=== PATIENT | male | born 1965 | race Two or more races ===

== ENCOUNTER → 2024-11-12 | Outpatient (CLI) | payer OTHER, SELFPAY ==
[2024-11-12 08:39] LABS: Glucose Estimated Average 186 mg/dL (80-131); Hemoglobin A1C 8.1 % Hgb (4.8-6.0)
[2024-11-12 08:42] LABS: Basophils # (Auto) 0.1 Thou/mm3 (0.0-0.2); Basophils % (Auto) 1 % (0-2.5); Eosinophils # (Auto) 0.2 Thou/mm3 (0.0-0.5); Eosinophils % (Auto) 3 % (0-10); Hematocrit 45.3 % (41.0-53.0); Hemoglobin 16.2 g/dL (13.5-16.0); Immature Granulocytes % (Auto) 0 % (0-0); Immature Granulocytes Auto 0.02 Thou/mm3 (0.00-0.00); Lymphocytes % (Auto) 33 % (10-50); Mean Corpuscular HGB Conc 35.8 g/dl (31.0-37.0); Mean Corpuscular Hemoglobin 31.7 pg (25.0-35.0); Mean Corpuscular Volume 89 fL (80-100); Monocytes # (Auto) 0.4 Thou/mm3 (0.0-0.8); Monocytes % (Auto) 7 % (0-12); Neutrophils # (Auto) 3.4 Thou/mm3 (1.8-7.7); Neutrophils % (Auto) 56 % (37-80); Nucleated Red Blood Cell % 0 /100 WBC (0); Platelet Count 266 Thou/mm3 (140-440); RDW Standard Deviation 40.9 fL (35.1-43.9); Red Blood Count 5.11 Miln/mm3 (4.50-5.90); White Blood Count 6.1 Thou/mm3 (3.8-10.6)
[2024-11-12 08:57] LABS: Alanine Aminotransferase 65 U/L (10-49); Albumin, Serum 4.8 gm/dL (3.5-5.0); Alkaline Phosphatase 118 U/L (46-116); Anion Gap 9 (7-16); Aspartate Amino Transferase 45 U/L (0-34); BUN/Creatinine Ratio 23 Ratio (12-20); Bilirubin,Direct 0.1 mg/dL (0.0-0.3); Bilirubin,Total 0.5 mg/dL (0.3-1.2); Blood Urea Nitrogen 23 mg/dL (9-23); Calcium 9.9 mg/dL (8.3-10.6); Carbon Dioxide 25.8 mMol/L (20.0-31.0); Cardiac Risk Estimate 3.3 RATIO (4.0-6.7); Chloride 107 mMol/L (98-107); Cholesterol 174 mg/dL (132-200); Glucose 121 mg/dL (74-106); HDL Cholesterol 52 mg/dL (40-60); LDL Cholesterol,Calculated 45 mg/dL (0-130); Osmolality,Calculated 287 (275-295); Potassium 4.4 mMol/L (3.4-5.1); Sodium 142 mMol/L (136-145); Triglycerides 385 mg/dL (30-150); eGFR > 60 See Note
[2024-11-12 09:59] LABS: Creatinine MALB Rnd Ur 73 mg/dL (30-125); Microalbumin Creat Ratio 11 mg/gCrea (<30); Microalbumin, Random Urine 8 mg/L (0-300)
== END | disposition home or self-care (01) ==
LOC: COPL 07:37
PROVIDERS: PCP Family Medicine; Referring Provider Family Medicine; Visit Provider Family Medicine
DX: E11.9 Type 2 diabetes mellitus without complications (principal); E78.5 Hyperlipidemia, unspecified; M25.561 Pain in right knee
CPT/HCPCS: 36415; 80048; 80061; 80076; 82043; 82570; 83036; 85025

== ENCOUNTER → 2024-11-14 | Outpatient (CLI) | payer OTHER, MEDICAID, SELFPAY ==
[2024-11-17 07:05] LABS: Fecal Globin Result NOT DETECTED (NOT DETECTED)
== END | disposition home or self-care (01) ==
LOC: SLDO 09:12
PROVIDERS: Referring Provider Family Medicine; Visit Provider Family Medicine
DX: Z12.11 Encounter for screening for malignant neoplasm of colon (principal); Z12.12 Encounter for screening for malignant neoplasm of rectum
CPT/HCPCS: 82274; G0328

== ENCOUNTER → 2024-12-08 | Outpatient (CLI) | payer OTHER, MEDICAID, SELFPAY ==
--- NOTE | 2024-12-08 10:04 | XR_ITS ---
Examination: Knee, right , 3 views Technique: Knee AP, lateral, oblique 3 views Date and time of exam: December 08, 2024 1016 hours INDICATIONS: Right knee pain beginning 2 days ago FINDINGS: Mild tricompartment osteoarthritis Moderate knee effusion No fracture IMPRESSION: Mild tricompartment osteoarthritis Moderate knee effusion, seen with internal derangement of the knee
== END | disposition home or self-care (01) ==
LOC: SDIM 09:54
PROVIDERS: PCP Family Medicine; Referring Provider Family Medicine; Visit Provider Family Medicine
DX: M17.11 Unilateral primary osteoarthritis, right knee (principal); M25.461 Effusion, right knee; M23.91 Unspecified internal derangement of right knee
CPT/HCPCS: 73562

== ENCOUNTER → 2024-12-30 | Outpatient (CLI) | payer OTHER, MEDICAID, SELFPAY ==
--- NOTE | 2024-12-30 14:45 | XR_ITS ---
Exam: MRI knee without contrast, right Date and time of exam: December 30, 2024 1548 hours INDICATIONS: Right knee pain beginning one month ago Technique: Multiple axial, coronal, and sagittal sections on the knee have been obtained. T2-Weighted sagittal, fat-suppressed images, TR 3,500, TE 62, T2 weighted coronal fat-saturated images, TR 3,500, TE 62 Proton density sagittal sections, TR 1800, TE 31. T-1 weighted coronal images, TR 524, TE 13.0 Findings: Medial meniscus anterior horn truncation inner margin Medial meniscus, body horizontal linear tear communicating inferior articular surface. Posterior horn medial meniscus truncation inner margin Lateral meniscus anterior horn is intact Lateral meniscus, body is intact Posterior horn lateral meniscus is intact Anterior cruciate ligament significantly attenuated Posterior cruciate ligament appears intact. Knee effusion is moderate. Quadriceps and patellar tendons appear intact. There is no evidence of tendinosis. There is fracture through the Hoffa's fat pad Medial patellar facet demonstrates moderate thinning. Lateral patellar facet cartilage demonstrates moderate thinning. Trochlear cartilage demonstrates moderate thinning. Marrow signal adequate. Medial collateral ligament appears intact. No meniscocapsular separation is seen. Illiotibial band and fibular collateral ligament are intact. Biceps femoris tendons appear intact. Medial femoral condylar articular cartilage demonstrates mild thinning. Lateral femoral condylar articular cartilage demonstratesmild thinning. Tibial plateau cartilage demonstrates mild thinning. Impression: Fragmentation of Hoffa's fat pad Extensive tears medial meniscus Prominent attenuation anterior cruciate ligament
== END | disposition home or self-care (01) ==
PROVIDERS: PCP Family Medicine; Referring Provider Family Medicine; Visit Provider Family Medicine
DX: S83.241A Other tear of medial meniscus, current injury, right knee, initial encounter (principal); X58.XXXA Exposure to other specified factors, initial encounter; M25.861 Other specified joint disorders, right knee
CPT/HCPCS: 73721

== ENCOUNTER 2025-01-27 08:52 | Outpatient (AMB) | payer OTHER, MEDICAID, SELFPAY ==
[2025-01-27 09:17] VITALS: BP 131/88; PULSE 101; RESP 17; TEMP 36.8; O2SAT 95; BMI 23.4
--- NOTE | 2025-01-27 09:17 | PD.ORTHCLVIS ---
Vital signs 01/27/25 09:17 Height 1.78 m Height Method Stated Weight 74.134 kg Weight Measurement Method Standing Scale BMI 23.4 BP 131/88 H Blood Pressure Source Automatic Cuff Blood Pressure Location Right Upper Arm Position Sitting Respiration 17 Pulse 101 H Pulse Source Monitor Temp 98.3 F Temp Source Temporal Artery Scan Pulse Oximetry (%) 95 Oxygen Delivery Method Room Air Med/Allergies Allergies & Medications Allergies No Known Allergies Allergy (Verified 01/27/25 09:18) Medication Reconciliation amitriptyline 25 mg tablet 25 mg PO QDAY 01/27/25 [History Confirmed 01/27/25] baclofen 10 mg tablet 10 mg PO QDAY 01/27/25 [History Confirmed 01/27/25] donepezil 10 mg tablet 10 mg PO QDAY 01/27/25 [History Confirmed 01/27/25] glimepiride 4 mg tablet 4 mg PO QAM 01/27/25 [History Confirmed 01/27/25] insulin glargine U-300 conc 300 unit/mL (1.5 mL) subcutaneous pen (Toujeo SoloStar U-300 Insulin) 30 unit subcut QDAY 01/27/25 [History Confirmed 01/27/25] latanoprost 0.005 % eye drops 1 drp Both eyes QPM 01/27/25 [History Confirmed 01/27/25] meloxicam 7.5 mg tablet 7.5 mg PO QDAY #45 tabs 01/27/25 [Rx Confirmed 01/27/25] memantine 10 mg tablet 10 mg PO BID 01/27/25 [History Confirmed 01/27/25] metformin 1,000 mg tablet 1,000 mg PO BID 01/27/25 [History Confirmed 01/27/25] pioglitazone 15 mg tablet 15 mg PO QDAY 01/27/25 [History Confirmed 01/27/25] rosuvastatin 20 mg tablet 20 mg PO QDAY 01/27/25 [History Confirmed 01/27/25] Exam Exam Patient is in no acute distress and is cooperative with the examination today. Breathing is nonlabored. In no respiratory distress. Bilateral extremities were evaluated and demonstrates sensation intact to light touch. Palpable pedal pulses are present. No significant edema is present. Bilateral hips were examined. The patient has no pain with log roll of the hips. Internal rotation to 30 degrees and external rotation to 30 degrees is painless. Negative FADIR. The left knee was examined. The left knee is in varus alignment. Range of motion from 0-115 degrees. Knee is stable to varus and valgus as well as AP translation with <5mm. Patient has a negative McMurrays. There is no pain with patellofemoral compression and no crepitus noted. The knee is tender to palpation medially. The right knee was also examined. The right knee is in varus alignment. Range of motion from 0-120 degrees. Knee is stable to varus and valgus as well as AP translation with <5mm. Patient has a negative McMurrays. There is no pain with patellofemoral compression and no crepitus noted. The knee is tender to palpation medially. Right knee x-rays demonstrate minimal joint space narrowing. These are nonweightbearing x-rays Assessment and Plan Problem List (1) Arthritis of knee, right: Status: Acute Plan: Patient is a 60-year-old male with right knee pain and right knee arthritis. The knee pain has been ongoing for 4 weeks. He has not tried significant conservative therapy. We will start with conservative treatment. I would like to get a weightbearing x-ray. We will do anti-inflammatories as well as an injection. Recommend knee cortisone injection as patient would like to proceed with conservative treatment at this time. The risks and benefits of the procedure were reviewed with the patient and patient gave verbal consent to continue with the procedure. Procedure: performed by Dr. Sagluero Using sterile technique the Right knee was thoroughly prepped with alcohol, and approximately 1 cc of Kenalog 40 mg/mL and 4 cc of 1% lidocaine was injected without resistance into the medial tibial femoral joint space. The patient tolerated the procedure. Office Procedures GNS Level of Care Nursing/Assessment Patient Status: Initial/New Patient Nursing Assessment/Reassesment: Medication Reconciliation and Update PMH in EMR Coordination of Care: Complex Care and Chronic Disease 1-5, Consent,records obtained, informed consent, 1 Ins Authorization, Lab and Imaging orders and Results/Orders obtained New Patient Charge New Patient Point Assignment: [id number] New Patient Point Charge: GREY INSPECTOR Level 3 ([id number]) Surgical Proc/IM SQ injection Major Surgical Procedure: Yes (KNEE INJECTIONS ) Medication Given Medication Given Medication Given: Yes Documented Dose Given: 4 Route: Infiitration Medication Given Medication Given Medication Given: Yes Documented Dose Given: 1 Route: Infiitration Office Meds Xylocaine 10 mg/mL (1 %) injection solution Performing Provider: Sarmad Salguero MD Performing Location: [facility] Administered by: Sarmad Salguero MD on 01/27/25 10:07 Dose Route Admin Location Dispensed Lot Number Expiration Date [employer] Programming Development Project Manager 20 mL Infiltration KNEE 20 mL [id number] 05/11/28 02583-722-56 [facility] triamcinolone acetonide 40 mg/mL suspension for injection Performing Provider: Sarmad Salguero MD Performing Location: [facility] Administered by: Sarmad Salguero MD on 01/27/25 10:07 Dose Route Admin Location Dispensed Lot Number Expiration Date [facility] Programming Development Project Manager 40 mg intra-articular KNEE 1 mL [id number] 08/10/26 7302-7738-29 [employer] [place] Intake Visit Data Collection New Patient or Established: New Patient (never been to [facility]) Reason for Visit:: RT KNEE PAIN Seen by Clinical Staff ONLY (RN/MA): No Online Program Coordinator Required: No PCP or OBGYN visit in last 3 months: Yes Hx Now: No Do You Feel Safe at Home: Yes Authorities Contacted: N/A Questionairres Past Medical History Past Medical History Have you ever been diagnosed with any of the following: Respiratory Problems Smoking: No Smoking Cessation Counseling: No Smoking Exposure: No Tobacco Use: No Subjective Visit Visit for: new patient and knee (RT KNEE PAIN ) Immunization / Flu Flu Vaccine in the Last 12 Months: Yes Flu Vaccine Exclusion Criteria: Already Received History of Present Illness Chief complaint: Right knee pain Frantz is a pleasant 60-year-old male with right knee pain. This has been onGoing for 2 months. He has not had significant conservative treatment. 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 He reports his diabetes is well-controlled Personal History Red flag PMH: none Pain Pain level (0-10): 7 Pain duration: 12/2024 Pain location: anterior Pain quality: sharp, dull, aching, burning, shocking, electric and tingling Pain timing: night and increases with activity Associated signs & symptoms: weakness Ambulatory data Ambulatory device: none Walking distance (minutes): 1 Treatments Number of previous injections: 1 Improvement with previous injections: Yes Number of Physical Therapy sessions: 0 Improvement with NSAIDS: n/a Review of Systems Review of Systems: All systems negative unless otherwise noted in HPI.
--- NOTE | 2025-01-27 09:19 | XR_ITS ---
Examination: Right knee 4 views TECHNIQUE: Standing AP oblique lateral axial right knee 4 views Date and time: January 27, 2025 0951 hours INDICATIONS: Injury beginning 2 months ago, knee pain. FINDINGS: Mild to moderate tricompartment osteoarthritis, most prominent medial joint space No fracture or patellar dislocation IMPRESSION: Mild to moderate tricompartment osteoarthritis
== END 2025-01-27 09:45 | disposition home or self-care (01) ==
PROVIDERS: Supervising Provider Orthopaedic Surgery Adult Reconstructive Orthopaedic Surgery; Visit Provider Orthopaedic Surgery Adult Reconstructive Orthopaedic Surgery
DX: M17.11 Unilateral primary osteoarthritis, right knee (principal); M25.561 Pain in right knee; E11.9 Type 2 diabetes mellitus without complications; Z86.73 Personal history of transient ischemic attack (TIA), and cerebral infarction without residual deficits
CPT/HCPCS: 20610; 73564; 99203; J3301; J3490; G0463

== ENCOUNTER → 2025-02-19 | Outpatient (CLI) | payer OTHER, MEDICAID, SELFPAY ==
[2025-02-19 08:52] LABS: Glucose Estimated Average 183 mg/dL (80-131)
[2025-02-19 09:13] LABS: Anion Gap 15 (7-16); BUN/Creatinine Ratio 13 Ratio (12-20); Blood Urea Nitrogen 14 mg/dL (9-23); Calcium 9.3 mg/dL (8.3-10.6); Carbon Dioxide 24.5 mMol/L (20.0-31.0); Chloride 102 mMol/L (98-107); Creatinine (Component) 1.1 mg/dL (0.6-1.3); Glucose 287 mg/dL (74-106); Osmolality,Calculated 291 (275-295); Potassium 4.1 mMol/L (3.4-5.1); Sodium 141 mMol/L (136-145); Triglycerides 903 mg/dL (30-150); eGFR > 60 See Note
== END | disposition home or self-care (01) ==
LOC: COPL 06:59
PROVIDERS: PCP Family Medicine; Referring Provider Family Medicine; Visit Provider Family Medicine
DX: M17.11 Unilateral primary osteoarthritis, right knee (principal); E11.65 Type 2 diabetes mellitus with hyperglycemia; E78.1 Pure hyperglyceridemia
CPT/HCPCS: 36415; 80048; 83036; 84478

== ENCOUNTER → 2025-03-23 | Outpatient (CLI) | payer OTHER, MEDICAID, SELFPAY ==
[2025-03-23 08:38] LABS: Alanine Aminotransferase 42 U/L (10-49); Albumin, Serum 4.7 gm/dL (3.5-5.0); Alkaline Phosphatase 84 U/L (46-116); Aspartate Amino Transferase 34 U/L (0-34); Bilirubin,Direct 0.1 mg/dL (0.0-0.3); Bilirubin,Total 0.4 mg/dL (0.3-1.2); Total Protein 7.1 gm/dL (5.7-8.2); Triglycerides 253 mg/dL (30-150)
== END | disposition home or self-care (01) ==
LOC: COPL 06:43
PROVIDERS: PCP Family Medicine; Referring Provider Family Medicine; Visit Provider Family Medicine
DX: E78.1 Pure hyperglyceridemia (principal)
CPT/HCPCS: 36415; 80076; 84478

== ENCOUNTER 2025-05-01 09:32 | Outpatient (AMB) | payer OTHER, MEDICAID, SELFPAY ==
[2025-05-01 10:04] VITALS: BP 139/80; PULSE 77; RESP 16; TEMP 36.3; O2SAT 98; BMI 25.5
--- NOTE | 2025-05-01 10:04 | PD.ORTHCLVIS ---
Vital signs 05/01/25 10:04 Height 1.78 m Height Method Measured Weight 80.995 kg Weight Measurement Method Standing Scale BMI 25.5 BP 139/80 H Blood Pressure Source Automatic Cuff Blood Pressure Location Left Upper Arm Position Sitting Respiration 16 Pulse 77 Pulse Source Monitor Temp 97.4 F Temp Source Temporal Artery Scan Pulse Oximetry (%) 98 Oxygen Delivery Method Room Air Med/Allergies Allergies & Medications Allergies No Known Allergies Allergy (Verified 05/01/25 10:05) Medication Reconciliation amitriptyline 25 mg tablet 25 mg PO QDAY 01/27/25 [History Confirmed 05/01/25] baclofen 10 mg tablet 10 mg PO QDAY 01/27/25 [History Confirmed 05/01/25] donepezil 10 mg tablet 10 mg PO QDAY 01/27/25 [History Confirmed 05/01/25] glimepiride 4 mg tablet 4 mg PO QAM 01/27/25 [History Confirmed 05/01/25] insulin glargine U-300 conc 300 unit/mL (1.5 mL) subcutaneous pen (Toujeo SoloStar U-300 Insulin) 30 unit subcut QDAY 01/27/25 [History Confirmed 05/01/25] latanoprost 0.005 % eye drops 1 drp Both eyes QPM 01/27/25 [History Confirmed 05/01/25] meloxicam 7.5 mg tablet 7.5 mg PO QDAY #45 tabs 01/27/25 [Rx Confirmed 05/01/25] memantine 10 mg tablet 10 mg PO BID 01/27/25 [History Confirmed 05/01/25] metformin 1,000 mg tablet 1,000 mg PO BID 01/27/25 [History Confirmed 05/01/25] pioglitazone 15 mg tablet 15 mg PO QDAY 01/27/25 [History Confirmed 05/01/25] rosuvastatin 20 mg tablet 20 mg PO QDAY 01/27/25 [History Confirmed 05/01/25] Exam Exam Patient is in no acute distress and is cooperative with the examination today. Breathing is nonlabored. In no respiratory distress. Bilateral extremities were evaluated and demonstrates sensation intact to light touch. Palpable pedal pulses are present. No significant edema is present. Bilateral hips were examined. The patient has no pain with log roll of the hips. Internal rotation to 30 degrees and external rotation to 30 degrees is painless. Negative FADIR. The left knee was examined. The left knee is in varus alignment. Range of motion from 0-115 degrees. Knee is stable to varus and valgus as well as AP translation with <5mm. Patient has a negative McMurrays. There is no pain with patellofemoral compression and no crepitus noted. The knee is tender to palpation medially. The right knee was also examined. The right knee is in varus alignment. Range of motion from 0-120 degrees. Knee is stable to varus and valgus as well as AP translation with <5mm. Patient has a negative McMurrays. There is no pain with patellofemoral compression and no crepitus noted. The knee is tender to palpation medially. Right knee x-rays demonstrate minimal joint space narrowing. Assessment and Plan Problem List (1) Arthritis of knee, right: Status: Acute Plan: Patient is a 60-year-old male with right knee pain and right knee arthritis. He has been doing well with conservative treatment. He would like another cortisone injection today Recommend knee cortisone injection as patient would like to proceed with conservative treatment at this time. The risks and benefits of the procedure were reviewed with the patient and patient gave verbal consent to continue with the procedure. Procedure: performed by Dr. Salguero Using sterile technique the Right knee was thoroughly prepped with alcohol, and approximately 1 cc of Depo-Medrol 80mg/mL and 4 cc of 0.2% ropivacaine was injected without resistance into the medial tibial femoral joint space. The patient tolerated the procedure. Office Procedures GNS Level of Care Nursing/Assessment Patient Status: Established Patient Nursing Assessment/Reassesment: Medication Reconciliation, Orthostatic Vitals, Update PMH in EMR and Vital Signs Coordination of Care: Complex Care and Chronic Disease 1-5, Education Complex Pt/Fam, Consent,records obtained, informed consent, Results/Orders obtained and Staff clarify orders Established Patient Charge Established Patient Point Assignment: 105 Established Patient Point Charge: EP Level 3 (80-115) Surgical Proc/IM SQ injection Major Surgical Procedure: Yes (KNEE INJECTION ) Medication Given Medication Given Medication Given: Yes Documented Dose Given: 1 Route: Infiitration Medication Given Medication Given Medication Given: Yes Documented Dose Given: 4 Route: Infiitration Office Meds methylprednisolone acetate 80 mg/mL suspension for injection Performing Provider: Sarmad Salguero MD Performing Location: [facility] Administered by: Sarmad Salguero MD on 05/01/25 10:01 Dose Route Admin Location Dispensed Lot Number Expiration Date [facility] Validation Consultant 80 mg intra-articular KNEE 1 mL [id number] 10/10/26 1799-2035-24 [employer] ropivacaine (PF) 2 mg/mL (0.2 %) injection solution Performing Provider: Sarmad Salguero MD Performing Location: [facility] Administered by: Sarmad Salguero MD on 05/01/25 10:01 Dose Route Admin Location Dispensed Lot Number Expiration Date [facility] Validation Consultant 20 mL Infiltration KNEE 20 mL [id number] 10/10/27 89578-391-46 [facility] Intake Visit Data Collection New Patient or Established: Established Patient (seen at [facility] within 3 years) Reason for Visit:: RT KNEE PAIN/XRAY RESULTS Seen by Clinical Staff ONLY (RN/MA): No Salvage Engineering Technician Required: No PCP or OBGYN visit in last 3 months: Yes Hx Now: No Do You Feel Safe at Home: Yes Authorities Contacted: N/A Questionairres Past Medical History Past Medical History Have you ever been diagnosed with any of the following: Respiratory Problems Smoking: No Smoking Cessation Counseling: No Smoking Exposure: No Tobacco Use: No Subjective Visit Visit for: follow up visit and knee Immunization / Flu Flu Vaccine in the Last 12 Months: Yes Flu Vaccine Exclusion Criteria: Already Received History of Present Illness Chief complaint: Right knee pain/XRAY RESULTS Frantz is a pleasant 60-year-old male with right knee pain. This has been onGoing for 2 months. He has not had significant conservative treatment. 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 He reports his diabetes is well-controlled He had a cortisone injection on his right knee last time and received great relief. He would like another 1 today Personal History Red flag PMH: none Pain Pain level (0-10): 4 Pain duration: 12/2024 Pain location: anterior Pain quality: sharp, dull, aching, burning, shocking, electric and tingling Pain timing: night and increases with activity Associated signs & symptoms: weakness Ambulatory data Ambulatory device: none Walking distance (minutes): 1 Treatments Number of previous injections: 1 Improvement with previous injections: Yes Number of Physical Therapy sessions: 0 Improvement with NSAIDS: n/a Review of Systems Review of Systems: All systems negative unless otherwise noted in HPI.
== END 2025-05-01 10:52 | disposition home or self-care (01) ==
PROVIDERS: Supervising Provider Orthopaedic Surgery Adult Reconstructive Orthopaedic Surgery; Visit Provider Orthopaedic Surgery Adult Reconstructive Orthopaedic Surgery
DX: M17.11 Unilateral primary osteoarthritis, right knee (principal); M25.561 Pain in right knee; Z86.73 Personal history of transient ischemic attack (TIA), and cerebral infarction without residual deficits; E11.9 Type 2 diabetes mellitus without complications
CPT/HCPCS: 20610; 99213; J1010; J2795; G0463

== ENCOUNTER → 2025-06-10 | Outpatient (CLI) | payer OTHER, MEDICAID, SELFPAY ==
[2025-06-10 08:47] LABS: Glucose Estimated Average 114 mg/dL (80-131); Hemoglobin A1C 5.6 % Hgb (4.8-6.0)
[2025-06-10 09:00] LABS: Anion Gap 10 (7-16); BUN/Creatinine Ratio 10 Ratio (12-20); Blood Urea Nitrogen 12 mg/dL (9-23); Calcium 10.2 mg/dL (8.3-10.6); Carbon Dioxide 26.2 mMol/L (20.0-31.0); Chloride 109 mMol/L (98-107); Creatinine (Component) 1.2 mg/dL (0.6-1.3); Glucose 126 mg/dL (74-106); Osmolality,Calculated 290 (275-295); Potassium 4.0 mMol/L (3.4-5.1); Sodium 145 mMol/L (136-145); Triglycerides 215 mg/dL (30-150); eGFR > 60 See Note
[2025-06-10 09:09] LABS: Microalbumin, Random Urine 13 mg/L (0-300)
[2025-06-10 09:33] LABS: Creatinine MALB Rnd Ur 261 mg/dL (30-125); Microalbumin Creat Ratio 5 mg/gCrea (<30)
== END | disposition home or self-care (01) ==
LOC: COPL 06:42
PROVIDERS: PCP Family Medicine; Referring Provider Family Medicine; Visit Provider Family Medicine
DX: E78.1 Pure hyperglyceridemia (principal); E11.65 Type 2 diabetes mellitus with hyperglycemia
CPT/HCPCS: 36415; 80048; 82043; 82570; 83036; 84478

== ENCOUNTER 2025-09-01 09:20 | Outpatient (AMB) | payer OTHER, MEDICAID, SELFPAY ==
--- NOTE | 2025-09-01 09:37 | PD.ORTHCLVIS ---
Vital signs 09/01/25 09:38 Height 1.78 m Height Method Stated Weight 77.224 kg Weight Measurement Method Standing Scale BMI 24.3 BP 135/84 H Blood Pressure Source Automatic Cuff Blood Pressure Location Left Upper Arm Position Sitting Respiration 18 Pulse 87 Pulse Source Monitor Temp 97.5 F Temp Source Temporal Artery Scan Pulse Oximetry (%) 96 Oxygen Delivery Method Room Air Med/Allergies Allergies & Medications Allergies No Known Allergies Allergy (Verified 09/01/25 09:47) Medication Reconciliation amitriptyline 25 mg tablet 25 mg PO QDAY 01/27/25 [History Confirmed 09/01/25] baclofen 10 mg tablet 10 mg PO QDAY 01/27/25 [History Confirmed 09/01/25] donepezil 10 mg tablet 10 mg PO QDAY 01/27/25 [History Confirmed 09/01/25] glimepiride 4 mg tablet 4 mg PO QAM 01/27/25 [History Confirmed 09/01/25] insulin glargine U-300 conc 300 unit/mL (1.5 mL) subcutaneous pen (Toujeo SoloStar U-300 Insulin) 30 unit subcut QDAY 01/27/25 [History Confirmed 09/01/25] latanoprost 0.005 % eye drops 1 drp Both eyes QPM 01/27/25 [History Confirmed 09/01/25] meloxicam 7.5 mg tablet 7.5 mg PO QDAY #45 tabs 01/27/25 [Rx Confirmed 09/01/25] memantine 10 mg tablet 10 mg PO BID 01/27/25 [History Confirmed 09/01/25] metformin 1,000 mg tablet 1,000 mg PO BID 01/27/25 [History Confirmed 09/01/25] pioglitazone 15 mg tablet 15 mg PO QDAY 01/27/25 [History Confirmed 09/01/25] rosuvastatin 20 mg tablet 20 mg PO QDAY 01/27/25 [History Confirmed 09/01/25] Exam Exam Patient is in no acute distress and is cooperative with the examination today. Breathing is nonlabored. In no respiratory distress. Bilateral extremities were evaluated and demonstrates sensation intact to light touch. Palpable pedal pulses are present. No significant edema is present. Bilateral hips were examined. The patient has no pain with log roll of the hips. Internal rotation to 30 degrees and external rotation to 30 degrees is painless. Negative FADIR. The left knee was examined. The left knee is in varus alignment. Range of motion from 0-115 degrees. Knee is stable to varus and valgus as well as AP translation with <5mm. Patient has a negative McMurrays. There is no pain with patellofemoral compression and no crepitus noted. The knee is tender to palpation medially. The right knee was also examined. The right knee is in varus alignment. Range of motion from 0-120 degrees. Knee is stable to varus and valgus as well as AP translation with <5mm. Patient has a negative McMurrays. There is no pain with patellofemoral compression and no crepitus noted. The knee is tender to palpation medially. Right knee x-rays demonstrate minimal joint space narrowing. Assessment and Plan Problem List (1) Arthritis of knee, right: Status: Acute Plan: Patient is a 60-year-old male with right knee pain and right knee arthritis. He has been doing well with conservative treatment. He would like another cortisone injection today Recommend knee cortisone injection as patient would like to proceed with conservative treatment at this time. The risks and benefits of the procedure were reviewed with the patient and patient gave verbal consent to continue with the procedure. Procedure: performed by Dr. Salguero Using sterile technique the Right knee was thoroughly prepped with alcohol, and approximately 1 cc of Depo-Medrol 80mg/mL and 4 cc of 0.2% ropivacaine was injected without resistance into the medial tibial femoral joint space. The patient tolerated the procedure. Office Procedures GNS Level of Care Nursing/Assessment Patient Status: Established Patient Nursing Assessment/Reassesment: Medication Reconciliation, Orthostatic Vitals and Update PMH in EMR Coordination of Care: Education Complex Pt/Fam, Consent,records obtained, informed consent, Results/Orders obtained and Staff clarify orders Established Patient Charge Established Patient Point Assignment: 65 Established Patient Point Charge: EP Level 3 (80-115) Surgical Proc/IM SQ injection Minor Surgical Procedure: Yes (KNEE INJECTION) Medication Given Medication Given Medication Given: Yes Documented Dose Given: 1 Route: Infiitration Medication Given Medication Given Medication Given: Yes Documented Dose Given: 4 Route: Infiitration Office Meds methylprednisolone acetate 80 mg/mL suspension for injection Performing Provider: Sarmad Salguero MD Performing Location: [facility] Administered by: Sarmad Salguero MD on 09/01/25 09:59 Dose Route Admin Location Dispensed Lot Number Expiration Date Package [facility] Airfield Operations Specialist 80 mg intra-articular 1 mL [id number] 05/09/27 [address]-0 [id number] [employer] ropivacaine (PF) 2 mg/mL (0.2 %) injection solution Performing Provider: Sarmad Salguero MD Performing Location: [facility] Administered by: Sarmad Salguero MD on 09/01/25 09:59 Dose Route Admin Location Dispensed Lot Number Expiration Date Package [facility] Airfield Operations Specialist 20 mL Infiltration 20 mL [id number] 02/06/27 5304-4237-14 [id number] [facility] Intake Visit Data Collection New Patient or Established: Established Patient (seen at [facility] within 3 years) Reason for Visit:: 4 MONTH F/U RIGHT KNEE INJECTION Seen by Clinical Staff ONLY (RN/MA): No Dog Breeder Required: No PCP or OBGYN visit in last 3 months: Yes Hx Now: No Do You Feel Safe at Home: Yes Authorities Contacted: N/A Questionairres Past Medical History Past Medical History Have you ever been diagnosed with any of the following: Respiratory Problems Smoking: No Smoking Cessation Counseling: No Smoking Exposure: No Tobacco Use: No Subjective Visit Visit for: follow up visit and knee Immunization / Flu Flu Vaccine in the Last 12 Months: Yes Flu Vaccine Exclusion Criteria: Already Received History of Present Illness Chief complaint: Right knee pain/XRAY RESULTS Frantz is a pleasant 60-year-old male with right knee pain. This has been onGoing for 2 months. He has not had significant conservative treatment. 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 He reports his diabetes is well-controlled He had a cortisone injection on his right knee last time and received great relief. He would like another 1 today Personal History Red flag PMH: none Pain Pain level (0-10): 4 Pain duration: 12/2024 Pain location: anterior Pain quality: sharp, dull, aching, burning, shocking, electric and tingling Pain timing: night and increases with activity Associated signs & symptoms: weakness Ambulatory data Ambulatory device: none Walking distance (minutes): 1 Treatments Number of previous injections: 1 Improvement with previous injections: Yes Number of Physical Therapy sessions: 0 Improvement with NSAIDS: n/a Review of Systems Review of Systems: All systems negative unless otherwise noted in HPI.
[2025-09-01 09:38] VITALS: BP 135/84; PULSE 87; RESP 18; TEMP 36.4; O2SAT 96; BMI 24.3
== END 2025-09-01 09:50 | disposition home or self-care (01) ==
LOC: HODSRG 09:20
PROVIDERS: PCP Family Medicine; Referring Provider Family Medicine; Supervising Provider Orthopaedic Surgery Adult Reconstructive Orthopaedic Surgery; Visit Provider Orthopaedic Surgery Adult Reconstructive Orthopaedic Surgery
DX: M17.11 Unilateral primary osteoarthritis, right knee (principal); M25.561 Pain in right knee; E11.9 Type 2 diabetes mellitus without complications
CPT/HCPCS: 20610; 99213; J1010; J2795; G0463